=== PATIENT | female | born 1955 | race Caucasian/White ===

== ENCOUNTER 2020-12-10 19:48 | Inpatient (IN) | payer MEDICARE, MEDICAID ==
[~2020-12-10] VITALS: Ht 157.5 cm; Wt 81.6 kg
[~2020-12-10 19:48] MED LIST: BISA5TAB; FAMO40TA70; FERR325T23; FLUO20CA33; GLIP10TA10; GLIPIZIDE; IRON SUPPLEMENT; LANTUS INSULIN; LISI10TA5; LORAZEPAM; METF1000; NOVOLOG INSULIN; PRAV40TA58; SUCRALFATE; VITAMIN B; [UNRECOGNIZED DRUG - OTHER]
[2020-12-10] MEDS ORDERED: ACETAMINOPHEN 325MG TABLET PO STA (20:18)
[2020-12-10] MEDS ORDERED: METOCLOPRAMIDE HCL 10MG/2ML VIAL IV ONE (20:30)
[2020-12-10] MEDS ORDERED: SODIUM CHLORIDE 0.9% 1,000 ML IV ONE (20:30)
[2020-12-10 20:43] LABS: BASOPHILS % 0.6 % (0.0-2.0); HEMATOCRIT. 29.1 % (36.0-48.0); HEMOGLOBIN. 9.2 g/dL (12.0-16.0); LYMPHOCYTES % 17.7 % (20.0-50.0); MEAN CORPUSCULAR VOLUME 94.7 fL (81.0-99.0); MEAN PLATELET VOLUME 7.8 fl (7.4-10.4); MONOCYTES % 7.4 % (2.0-8.0); NEUTROPHILS % 72.3 % (40.0-76.0); PLATELET 371 x1000/uL (130-400); RED BLOOD CELL COUNT 3.07 mill/uL (4.2-5.4); RED CELL DISTRIBUTION WIDTH 15.6 % (11.6-14.6)
[2020-12-10 20:55] LABS: PARTIAL THROMBOPLASTIN TIME 22.6 sec (23.4-31.0); PROTHROMBIN TIME 10.2 sec (9.6-11.0)
[2020-12-10 20:57] LABS: CHLORIDE 99 mEq/L (98-107)
[2020-12-10 21:03] LABS: CLARITY URINE CLEAR (CLEAR); COLOR URINE YELLOW (YELLOW); KETONES URINE TRACE (NEGATIVE); LEUKOCYTE ESTERASE URINE TRACE (NEGATIVE); NITRITE URINE NEGATIVE (NEGATIVE); OCCULT BLOOD URINE NEGATIVE (NEGATIVE); PROTEIN URINE NEGATIVE (NEGATIVE); SPECIFIC GRAVITY URINE 1.032 (1.005-1.030); UROBILINOGEN URINE 0.2 E.U./dL (0.2-1.0)
[2020-12-10] MEDS ORDERED: INSULIN REGULAR (HUMULIN R) 300UNITS/3ML VIAL SUBCUT ONE (21:45)
[2020-12-10] MEDS ORDERED: SODIUM POLYSTYRENE SULFONATE 15 G/60 ML BOT PO ONE (22:45)
[2020-12-10] MEDS ORDERED: ONDANSETRON HCL 4MG/2ML INJ IV PRN (23:30)
[2020-12-10] MEDS ORDERED: ACETAMINOPHEN 325MG TABLET PO PRN (23:30)
[2020-12-10] MEDS ORDERED: DEXTROSE 50% WATER 50ML SYRINGE IV PRN (23:30)
[2020-12-10] MEDS: SODIUM CHLORIDE 0.9% 1,000 ML IV SCH (23:42)
[2020-12-11] MEDS ORDERED: INSULIN GLARGINE UD 100 UNITS/ML SYR SUBCUT NR
[2020-12-11] MEDS: BLOOD SUGAR DIAGNOSTIC STRIP TEST SCH ×4 (07:57→20:41)
[2020-12-11] MEDS: INSULIN LISPRO 100 UNITS/ML SUBCUT SCH ×3 (08:20→21:20)
[2020-12-11] MEDS: INSULIN GLARGINE UD 100 UNITS/ML SYR SUBCUT SCH ×2 (10:00→22:00)
[2020-12-11 12:13] LABS: CHLORIDE 106 mEq/L (98-107)
[2020-12-11] MEDS: SODIUM CHLORIDE 0.9% 1,000 ML IV SCH (12:21)
[2020-12-11 14:15] VITALS: BP 142/71
[2020-12-11] MEDS ORDERED: GABA800T97 MT (14:24)
[2020-12-11] MEDS ORDERED: METO-396 MT (14:24)
[2020-12-11 16:00] VITALS: BP 126/61
[2020-12-11 20:00] VITALS: BP 166/78
[2020-12-11] MEDS ORDERED: FLUOXETINE HCL 20MG CAPSULE PO SCH (21:00)
[2020-12-11] MEDS ORDERED: LORAZEPAM 1MG TABLET PO PRN (21:00)
[2020-12-11 22:40] VITALS: BP 166/78
== END 2020-12-11 22:40 | disposition left against medical advice (07) | DRG 48 ==
LOC: ER 19:48 → EDBEDREQ 22:35 → 6EST 22:38 → EDBEDREQTM 22:40 → EDBEDREQSVC 22:40 → ENRESERV 12-11 13:21 → 6EST 12-11 20:08
PROVIDERS: ADMIT Internal Medicine; ATTEND Internal Medicine
DX: G90.8 Other disorders of autonomic nervous system (principal); K85.90 Acute pancreatitis without necrosis or infection, unspecified; E87.5 Hyperkalemia; N17.0 Acute kidney failure with tubular necrosis; E78.00 Pure hypercholesterolemia, unspecified; D64.9 Anemia, unspecified; Z86.16 Personal history of COVID-19; E78.5 Hyperlipidemia, unspecified; E87.1 Hypo-osmolality and hyponatremia; E43 Unspecified severe protein-calorie malnutrition; Z88.1 Allergy status to other antibiotic agents; Z88.2 Allergy status to sulfonamides; Z88.8 Allergy status to other drugs, medicaments and biological substances; Z79.899 Other long term (current) drug therapy; Z90.710 Acquired absence of both cervix and uterus; Z90.49 Acquired absence of other specified parts of digestive tract; Z68.32 Body mass index [BMI] 32.0-32.9, adult; E11.65 Type 2 diabetes mellitus with hyperglycemia; E86.0 Dehydration
CPT/HCPCS: 36415; 71045; 80048; 80053; 81003; 82962; 83036; 84484; 85025; 86850; 86870; 86900; 93005; 99285; J1815; J2765; J7030